=== PATIENT | female | born 1955 | race Caucasian/White ===

== ENCOUNTER 2023-03-24 21:03 | Inpatient (IN) | payer BC, MEDICARE, OTHER ==
[2023-03-24] MEDS ORDERED: Ipratropium/Albuterol 3 ML NEB ONE (21:16)
[2023-03-24 21:58] LABS: #Basophils 0.1 thou/uL (0.0-0.2); #Eosinphils 0.2 thou/uL (0.0-0.7); #Monocytes 0.7 thou/uL (0.11-0.59); #Neutrophils 10.4 thou/uL (1.40-6.50); %Basophils 0.5 % (0.0-1.0); %Eosinophils 1.6 % (0.0-10.0); %Lymphocytes 11.1 % (21.0-51.0); %Neutrophils 80.6 % (42.0-75.0); Hematocrit 35.6 % (36.0-47.0); Mean Corpuscular HGB CONC 28.1 g/dL (32.0-36.0); Mean Corpuscular Hemoglobin 29.9 pg (27.0-31.0); Mean Corpuscular Volume 106.6 fl (78.0-98.0); Mean Platelet Volume 8.8 fL (7.4-10.4); Platelet Count 334 10x3/uL (130-400); RBC Distribution Width 15.9 % (11.5-14.5); Red Blood Cell (RBC) Count 3.34 mill/uL (4.20-5.40); White Blood Cell (WBC) Count 12.9 10x3/uL (4.8-10.8)
[2023-03-24 22:05] LABS: Actual Bicarbonate (HCO3a) 41.2 mEq/L (22-28); Analyzer IN Cardio ER; Base Excess (BEa) 10.1 mEq/L (-2.0 to +3.0); Calcium, Ionized (arterial) 1.13 mmol/L (1.12-1.30); Carboxyhemoglobin (COHb) 1.2 gm% (0.0-3.0); Hematocrit-ABG 33 % (36.0-47.0); Hemoglobin (Hb) 11.1 g/dL (12.0-16.0); Potassium - ABG Lab 3.61 mmol/L (3.70-5.30); pH, Arterial 7.214 (7.35-7.45)
[2023-03-24 22:08] LABS: Manual Diff?? NO
[2023-03-24 22:10] LABS: CO2 Tension 104.3 mmHg (35.0-45.0)
[2023-03-24 22:11] LABS: ALV-art Gradient 163.385 mmHg (0-20); Puncture Site LBA
[2023-03-24 22:20] LABS: ALT (SGPT) 14 U/L (8-55); AST (SGOT) 19 U/L (5-34); Albumin 3.4 g/dL (3.4-4.8); Alkaline Phosphatase 91 U/L (40-110); BUN (Urea Nitrogen) 14 mg/dL (9.8-20.1); Bilirubin, Total 0.3 mg/dL (0.2-1.2); Calc. Creatinine Clearance 0 mL/min (70-130); Estimated GFR 62; Globulin 3.5 g/dL (2.4-3.5); Glucose 123 mg/dL (80-115); Protein, Total 6.9 g/dL (5.8-8.1)
[2023-03-24 22:29] LABS: Anion Gap 20 mmol/L (10-20); Carbon Dioxide 35 mmol/L (23-31); Chloride 94 mmol/L (98-107); Potassium 3.9 mmol/L (3.5-5.1); Sodium 145 mmol/L (136-145)
[2023-03-24 22:51] LABS: Macrocytosis MODERATE=16-30 cells (100X) (0-5/hpf); Ovalocytes SLIGHT = 2-5 cells (100X) (0-1/hpf)
[2023-03-24 22:52] LABS: Basophilic Stippling SLIGHT = 1-2 cells (100X) (None Seen)
[2023-03-24 22:53] LABS: Polychromasia SLIGHT = 2-3 cells (100X) (0-2/hpf)
[2023-03-24 22:56] LABS: Platelet Adequacy Comment Platelets Normal
[2023-03-24] MEDS ORDERED: methylPREDNISolone Sod Succ/PF 125 MG/2 ML VIAL ONE (23:13)
[2023-03-25] MEDS ORDERED: Ondansetron ODT 4 MG TAB PO PRN (00:17)
[2023-03-25] MEDS ORDERED: Calcium Carbonate 500 MG ChewTAB PO PRN (00:17)
[2023-03-25] MEDS ORDERED: Acetaminophen 325 MG TAB PO PRN (00:17)
[2023-03-25] MEDS ORDERED: Senokot S 8.6-50 MG TAB PO PRN (00:17)
[2023-03-25] MEDS: Ipratropium/Albuterol 3 ML NEB NEB SCH ×4 (01:19→18:09)
[2023-03-25 01:44] LABS: Hemoglobin A1c 4.8 % (4.0-6.0)
[2023-03-25] MEDS ORDERED: Albuterol 200 PUFF (6.7GM INHALER) INH PRN (03:59)
[2023-03-25 04:12] LABS: Base Excess 15.8 mEq/L (-2.0 to +3.0); Calcium, Ionized (venous) 1.06 mmol/L (1.16-1.32); Chloride (VBG) 95 mmol/L (98-106); Hematocrit-VBG 33 % (36.0-47.0); Hemoglobin (Hb) 11.1 g/dL (11.7-16.1); Potassium (VBG) 3.83 mmol/L (3.70-5.30); Sodium 141.4 mmol/L (133-146); pH (venous) 7.315 (7.32-7.43)
[2023-03-25 04:19] LABS: #Monocytes 0.1 thou/uL (0.11-0.59); %Basophils 0.3 % (0.0-1.0); %Eosinophils 0.3 % (0.0-10.0); %Lymphocytes 3.7 % (21.0-51.0); %Monocytes 1.2 % (0.0-10.0); %Neutrophils 93.5 % (42.0-75.0); Hematocrit 33.3 % (36.0-47.0); Hemoglobin 9.7 g/dL (12.0-16.0); Mean Corpuscular HGB CONC 29.1 g/dL (32.0-36.0); Mean Corpuscular Hemoglobin 30.1 pg (27.0-31.0); Mean Platelet Volume 9.5 fL (7.4-10.4); Platelet Count 318 10x3/uL (130-400); RBC Distribution Width 15.9 % (11.5-14.5); Red Blood Cell (RBC) Count 3.22 mill/uL (4.20-5.40); White Blood Cell (WBC) Count 10.7 10x3/uL (4.8-10.8)
[2023-03-25 04:27] LABS: Mean Corpuscular Volume 103.4 fl (78.0-98.0)
[2023-03-25 04:28] LABS: Phosphorus 3.4 mg/dL (2.3-4.7)
[2023-03-25 04:31] LABS: BUN (Urea Nitrogen) 13 mg/dL (9.8-20.1); Calc. Creatinine Clearance 106 mL/min (70-130); Estimated GFR 62; Glucose 135 mg/dL (80-115)
[2023-03-25 04:40] LABS: Anion Gap 20 mmol/L (10-20); Carbon Dioxide 30 mmol/L (23-31); Chloride 96 mmol/L (98-107); Potassium 3.8 mmol/L (3.5-5.1); Sodium 142 mmol/L (136-145)
[2023-03-25] MEDS: methylPREDNISolone Sod Succ 40 MG VIAL IVP SCH ×3 (06:12→18:31)
[2023-03-25] MEDS: Levothyroxine Sodium 100 MCG TAB PO SCH (06:12)
[2023-03-25] MEDS: Budesonide 0.25 MG/2 ML NEB NEB SCH ×2 (07:15→18:12)
[2023-03-25] MEDS: Ipratropium Bromide 2.5 ml Neb NEB SCH ×3 (07:18→18:13)
[2023-03-25 08:39] LABS: Base Excess 15.2 mEq/L (-2.0 to +3.0); Calcium, Ionized (venous) 1.15 mmol/L (1.16-1.32); Chloride (VBG) 92 mmol/L (98-106); Hematocrit-VBG 33 % (36.0-47.0); Hemoglobin (Hb) 11.2 g/dL (11.7-16.1); Potassium (VBG) 3.86 mmol/L (3.70-5.30); Sodium 141.5 mmol/L (133-146); pH (venous) 7.258 (7.32-7.43)
[2023-03-25 08:47] LABS: Actual Bicarbonate (HCO3v) 46.2 mEq/L (22-28)
[2023-03-25 08:53] LABS: Actual Bicarbonate (HCO3a) 39.8 mEq/L (22-28); Base Excess (BEa) 12.5 mEq/L (-2.0 to +3.0); Calcium, Ionized (arterial) 1.11 mmol/L (1.12-1.30); Carboxyhemoglobin (COHb) 1.1 gm% (0.0-3.0); Hematocrit-ABG 31 % (36.0-47.0); Hemoglobin (Hb) 10.7 g/dL (12.0-16.0); Potassium - ABG Lab 4.09 mmol/L (3.70-5.30); pH, Arterial 7.387 (7.35-7.45)
[2023-03-25] MEDS: Ezetimibe 10 MG TAB PO SCH (08:53)
[2023-03-25] MEDS: Multivit, Therapeutic 1 TAB PO SCH (08:53)
[2023-03-25] MEDS: Aspirin 81 mg Enteric Coated Tablet PO SCH (08:53)
[2023-03-25] MEDS: Lisinopril 20 MG TAB PO SCH (08:53)
[2023-03-25] MEDS: busPIRone HCl 10 MG TAB PO SCH ×2 (08:53→14:16)
[2023-03-25] MEDS: DULoxetine 60 MG CAP PO SCH (08:53)
[2023-03-25 08:55] LABS: CO2 Tension 67.7 mmHg (35.0-45.0); O2 Tension (PaO2), arterial 55.5 mmHg (> 80.0); Puncture Site LRA
[2023-03-25 08:57] LABS: ALV-art Gradient 145.075 mmHg (0-20)
[2023-03-25] MEDS ORDERED: Cyanocobalamin 1000 MCG/ML VIAL IM SCH (09:00)
[2023-03-25] MEDS ORDERED: methylPREDNISolone Sod Succ 40 MG VIAL IVP SCH (09:00)
[2023-03-25] MEDS ORDERED: cefTRIAXone\\ROCEPHIN 1 GM in Sodium Chloride 0.9% 100 ML IVPB SCH (09:00)
[2023-03-25] MEDS ORDERED: Famotidine 20 MG TAB PO SCH (09:00)
[2023-03-25] MEDS ORDERED: Doxycycline 100 MG CAP PO SCH (09:00)
[2023-03-25] MEDS ORDERED: Iopamidol-370 76% 500 ML MDV (1 ML CHARGE) ONE (10:54)
[2023-03-25 12:43] LABS: Bacteria/HPF None Seen HPF (None Seen); Bilirubin Negative (Negative); Blood, Urine Negative (Negative); CAUTI Indications for Culture Alt mental st,lethar; Clarity Clear (Clear); Glucose, Urine (Dipstick) Normal (Negative); Ketone, Urine Negative (Negative); Leukocyte Negative Leu/uL (Negative); Nitrite Negative (Negative); Protein, Urine (Dipstick) 100 mg/dL (Neg-Trace); RBC/HPF 0-3 HPF (0-3); Squamous Epithelial 0-3 HPF (0-3); Urobilinogen Normal mg/dL (Less than 2); WBC/HPF 0-3 HPF (0-3)
[2023-03-25 12:44] LABS: Specific Gravity, Urine 1.048 (1.002-1.036)
[2023-03-25 12:45] LABS: Urine Culture Reflex No No
[2023-03-25] MEDS ORDERED: Artificial Tear Sol 15 ML BOT EA EYE PRN (13:21)
[2023-03-25] MEDS ORDERED: Naloxone HCl 0.4 mg/ml Vial IV PRN (13:21)
[2023-03-25] MEDS ORDERED: Bisacodyl 10 MG SUPP PR PRN (13:21)
[2023-03-25] MEDS ORDERED: Moisturizing Cream (Eucerin) 113 GM JAR TOP PRN (13:21)
[2023-03-25] MEDS ORDERED: Pantoprazole 40 MG VIAL IVP SCH (13:30)
[2023-03-25] MEDS ORDERED: Ondansetron PF 4 MG/2 ML Vial IVP PRN (13:54)
[2023-03-25] MEDS ORDERED: Acetaminophen 650 MG Suppository PR PRN (13:54)
[2023-03-25 15:11] LABS: SARS-CoV-2 NAA Rapid Test Not Detected (NotDetected)
[2023-03-25] MEDS ORDERED: Sterile Water 10 ML ONE (20:30)
[2023-03-25] MEDS: acetaZOLAMIDE Sodium 500 mg Vial IVP SCH (20:50)
[2023-03-25] MEDS: Estradiol 0.01% Vaginal Cream 42.5 gm Tube VAG SCH (20:52)
[2023-03-25] MEDS: SODIUM CHLORIDE 0.9% IVPB SCH (20:52)
[2023-03-25] MEDS: AMINOPHYLLINE IVPB SCH (20:52)
[2023-03-25] MEDS ORDERED: Amiodarone 200 MG TAB PO SCH (21:00)
[2023-03-25] MEDS ORDERED: Doxycycline 100 MG in Sodium Chloride 0.9% 100 ML IVPB SCH (21:00)
[2023-03-25] MEDS ORDERED: Estrogens, Conjugated 30 GM TUBE VAG SCH (21:00)
[2023-03-26] MEDS: Ipratropium/Albuterol 3 ML NEB NEB SCH ×2 (01:03→06:38)
[2023-03-26] MEDS: methylPREDNISolone Sod Succ 40 MG VIAL IVP SCH ×3 (02:24→08:12)
[2023-03-26] MEDS ORDERED: Adenosine 6 MG/2 ML VIAL ONE ×2 (02:38→02:46)
[2023-03-26 02:59] LABS: Base Excess (BEa) 14.8 mEq/L (-2.0 to +3.0); CO2 Tension 59.8 mmHg (35.0-45.0); Calcium, Ionized (arterial) 1.11 mmol/L (1.12-1.30); Carboxyhemoglobin (COHb) 0.1 gm% (0.0-3.0); Hematocrit-ABG 32 % (36.0-47.0); Hemoglobin (Hb) 10.9 g/dL (12.0-16.0); O2 Tension (PaO2), arterial 67.4 mmHg (> 80.0); Potassium - ABG Lab 4.05 mmol/L (3.70-5.30); pH, Arterial 7.454 (7.35-7.45)
[2023-03-26] MEDS ORDERED: dilTIAZem 125 MG in Sodium Chloride 0.9% 100 ML IVPB SCH ×2 (03:00→12:30)
[2023-03-26] MEDS ORDERED: dilTIAZem 25 MG/5 ML VIAL SLOW IVP SCH ×2 (03:15→12:30)
[2023-03-26] MEDS ORDERED: Adenosine 6 MG/2 ML VIAL IVP SCH ×3 (03:15)
[2023-03-26 06:17] LABS: Magnesium 2.2 mg/dL (1.6-2.6); Phosphorus 2.3 mg/dL (2.3-4.7)
[2023-03-26] MEDS: Levothyroxine Sodium 100 MCG TAB PO SCH (06:19)
[2023-03-26 06:26] LABS: Free T4 (Free Thyroxine) 1.04 ng/dL (0.70-1.48); Thyroid Stimulating Hormone 4.1082 uIU/mL (0.35-4.94)
[2023-03-26] MEDS: Ipratropium Bromide 2.5 ml Neb NEB SCH ×3 (06:36→18:32)
[2023-03-26] MEDS: Budesonide 0.25 MG/2 ML NEB NEB SCH ×2 (06:37→18:32)
[2023-03-26] MEDS: SODIUM CHLORIDE 0.9% IVPB SCH (07:56)
[2023-03-26] MEDS: AMINOPHYLLINE IVPB SCH (07:56)
[2023-03-26] MEDS: Lisinopril 20 MG TAB PO SCH (08:12)
[2023-03-26] MEDS: Pantoprazole 40 MG VIAL IVP SCH (08:12)
[2023-03-26] MEDS ORDERED: Pantoprazole 40 MG VIAL IVP SCH (09:00)
[2023-03-26 10:55] LABS: Magnesium 2.2 mg/dL (1.6-2.6)
[2023-03-26] MEDS: acetaZOLAMIDE Sodium 500 mg Vial IVP SCH ×2 (11:00→20:58)
[2023-03-26] MEDS: Aspirin 300 MG Suppository PR SCH (18:37)
[2023-03-26] MEDS: Ezetimibe 10 MG TAB PO SCH (18:38)
[2023-03-26] MEDS: Lidocaine 4% Patch TD SCH (18:38)
[2023-03-26] MEDS: Multivit, Therapeutic 1 TAB PO SCH (18:38)
[2023-03-26] MEDS: Aspirin 81 mg Enteric Coated Tablet PO SCH (18:38)
[2023-03-26] MEDS: fentaNYL 75 mcg/hour Patch TD SCH (18:55)
[2023-03-26 20:19] LABS: #Monocytes 0.5 thou/uL (0.11-0.59); #Neutrophils 9.9 thou/uL (1.40-6.50); %Lymphocytes 8.4 % (21.0-51.0); %Monocytes 4.1 % (0.0-10.0); Hematocrit 32.4 % (36.0-47.0); Hemoglobin 9.7 g/dL (12.0-16.0); Mean Corpuscular HGB CONC 29.9 g/dL (32.0-36.0); Mean Corpuscular Hemoglobin 29.8 pg (27.0-31.0); Mean Corpuscular Volume 99.4 fl (78.0-98.0); Mean Platelet Volume 9.4 fL (7.4-10.4); Platelet Count 376 10x3/uL (130-400); RBC Distribution Width 16.8 % (11.5-14.5); Red Blood Cell (RBC) Count 3.26 mill/uL (4.20-5.40); White Blood Cell (WBC) Count 11.4 10x3/uL (4.8-10.8)
[2023-03-26] MEDS: Transdermal Patch Removal TOP SCH (20:35)
[2023-03-26 20:39] LABS: BUN (Urea Nitrogen) 21 mg/dL (9.8-20.1); Calc. Creatinine Clearance 113 mL/min (70-130); Calcium 8.9 mg/dL (7.8-10.44); Estimated GFR 67; Glucose 101 mg/dL (80-115)
[2023-03-26 20:47] LABS: Anion Gap 17 mmol/L (10-20); Carbon Dioxide 36 mmol/L (23-31); Chloride 93 mmol/L (98-107); Potassium 3.5 mmol/L (3.5-5.1); Sodium 142 mmol/L (136-145)
[2023-03-26] MEDS ORDERED: Sterile Water 10 ML ONE (20:54)
[2023-03-27 03:45] LABS: #Monocytes 0.7 thou/uL (0.11-0.59); #Neutrophils 8.3 thou/uL (1.40-6.50); %Basophils 0.1 % (0.0-1.0); %Eosinophils 0.1 % (0.0-10.0); %Monocytes 6.7 % (0.0-10.0); %Neutrophils 77.6 % (42.0-75.0); Hematocrit 32.5 % (36.0-47.0); Hemoglobin 9.7 g/dL (12.0-16.0); Mean Corpuscular HGB CONC 29.8 g/dL (32.0-36.0); Mean Corpuscular Volume 100.6 fl (78.0-98.0); Mean Platelet Volume 9.4 fL (7.4-10.4); Platelet Count 389 10x3/uL (130-400); RBC Distribution Width 16.8 % (11.5-14.5); Red Blood Cell (RBC) Count 3.23 mill/uL (4.20-5.40); White Blood Cell (WBC) Count 10.7 10x3/uL (4.8-10.8)
[2023-03-27 04:06] LABS: Phosphorus 1.9 mg/dL (2.3-4.7)
[2023-03-27 04:09] LABS: BUN (Urea Nitrogen) 21 mg/dL (9.8-20.1); Calc. Creatinine Clearance 104 mL/min (70-130); Calcium 9.1 mg/dL (7.8-10.44); Estimated GFR 61; Glucose 92 mg/dL (80-115); Magnesium 2.3 mg/dL (1.6-2.6)
[2023-03-27 04:18] LABS: Anion Gap 14 mmol/L (10-20); Carbon Dioxide 36 mmol/L (23-31); Chloride 94 mmol/L (98-107); Potassium 3.6 mmol/L (3.5-5.1); Sodium 140 mmol/L (136-145)
[2023-03-27] MEDS: Budesonide 0.25 MG/2 ML NEB NEB SCH ×2 (06:14→18:51)
[2023-03-27] MEDS: Ipratropium Bromide 2.5 ml Neb NEB SCH ×3 (06:14→18:51)
[2023-03-27] MEDS: Levothyroxine Sodium 100 MCG TAB PO SCH (06:44)
[2023-03-27] MEDS: Pantoprazole 40 MG VIAL IVP SCH (09:12)
[2023-03-27] MEDS: acetaZOLAMIDE Sodium 500 mg Vial IVP SCH ×2 (09:12→20:32)
[2023-03-27] MEDS: Aspirin 300 MG Suppository PR SCH (09:13)
[2023-03-27] MEDS: Aspirin 81 mg Enteric Coated Tablet PO SCH (09:13)
[2023-03-27] MEDS: Multivit, Therapeutic 1 TAB PO SCH (09:13)
[2023-03-27] MEDS: Lisinopril 20 MG TAB PO SCH (09:13)
[2023-03-27] MEDS: Ezetimibe 10 MG TAB PO SCH (09:13)
[2023-03-27] MEDS: Lidocaine 4% Patch TD SCH (09:14)
[2023-03-27] MEDS: DULoxetine 60 MG CAP PO SCH ×2 (09:18→20:31)
[2023-03-27] MEDS ORDERED: Electrolyte Replacement Protocol 1 EACH FS SCH (14:00)
[2023-03-27] MEDS: PHOS-NAK 1 PKT PACK PO SCH ×2 (14:17→20:32)
[2023-03-27] MEDS: Digoxin 0.5 MG/2 ML AMP SLOW IVP SCH ×2 (16:37→23:23)
[2023-03-27] MEDS: Transdermal Patch Removal TOP SCH (20:24)
[2023-03-27] MEDS ORDERED: Sterile Water 10 ML ONE (20:25)
[2023-03-28 04:05] LABS: #Eosinphils 0.3 thou/uL (0.0-0.7); #Monocytes 0.6 thou/uL (0.11-0.59); #Neutrophils 6.3 thou/uL (1.40-6.50); %Basophils 0.1 % (0.0-1.0); %Eosinophils 3.2 % (0.0-10.0); %Lymphocytes 23.3 % (21.0-51.0); %Monocytes 6.5 % (0.0-10.0); %Neutrophils 66.6 % (42.0-75.0); Hematocrit 33.1 % (36.0-47.0); Hemoglobin 9.8 g/dL (12.0-16.0); Mean Corpuscular HGB CONC 29.6 g/dL (32.0-36.0); Mean Corpuscular Hemoglobin 29.8 pg (27.0-31.0); Mean Corpuscular Volume 100.6 fl (78.0-98.0); Mean Platelet Volume 9.3 fL (7.4-10.4); Platelet Count 378 10x3/uL (130-400); RBC Distribution Width 16.3 % (11.5-14.5); Red Blood Cell (RBC) Count 3.29 mill/uL (4.20-5.40); White Blood Cell (WBC) Count 9.4 10x3/uL (4.8-10.8)
[2023-03-28 04:26] LABS: Anion Gap 10 mmol/L (10-20); BUN (Urea Nitrogen) 16 mg/dL (9.8-20.1); Calc. Creatinine Clearance 117 mL/min (70-130); Calcium 8.5 mg/dL (7.8-10.44); Carbon Dioxide 37 mmol/L (23-31); Chloride 98 mmol/L (98-107); Estimated GFR 70; Glucose 90 mg/dL (80-115); Potassium 3.3 mmol/L (3.5-5.1); Sodium 142 mmol/L (136-145)
[2023-03-28] MEDS: Digoxin 0.5 MG/2 ML AMP SLOW IVP SCH ×2 (05:26→09:07)
[2023-03-28] MEDS: Levothyroxine Sodium 100 MCG TAB PO SCH (05:27)
[2023-03-28] MEDS: Ipratropium Bromide 2.5 ml Neb NEB SCH ×3 (07:11→18:51)
[2023-03-28] MEDS: Budesonide 0.25 MG/2 ML NEB NEB SCH ×2 (07:13→18:51)
[2023-03-28] MEDS ORDERED: Potassium Chloride 20 MEQ TAB PO SCH (08:00)
[2023-03-28] MEDS ORDERED: Sterile Water 10 ML ONE (09:00)
[2023-03-28] MEDS: acetaZOLAMIDE Sodium 500 mg Vial IVP SCH ×2 (09:05→20:29)
[2023-03-28] MEDS: Lisinopril 20 MG TAB PO SCH (09:06)
[2023-03-28] MEDS: Multivit, Therapeutic 1 TAB PO SCH (09:06)
[2023-03-28] MEDS: Pantoprazole 40 MG VIAL IVP SCH (09:06)
[2023-03-28] MEDS: Aspirin 81 mg Enteric Coated Tablet PO SCH (09:06)
[2023-03-28] MEDS: DULoxetine 60 MG CAP PO SCH ×2 (09:06→20:29)
[2023-03-28] MEDS: Ezetimibe 10 MG TAB PO SCH (09:06)
[2023-03-28] MEDS: Aspirin 300 MG Suppository PR SCH (09:07)
[2023-03-28] MEDS: Lidocaine 4% Patch TD SCH (09:07)
[2023-03-28 12:37] LABS: Actual Bicarbonate (HCO3v) 45.6 mEq/L (22-28)
[2023-03-28] MEDS: Transdermal Patch Removal TOP SCH (21:42)
[2023-03-29 02:46] LABS: #Eosinphils 0.4 thou/uL (0.0-0.7); #Monocytes 0.5 thou/uL (0.11-0.59); #Neutrophils 7.1 thou/uL (1.40-6.50); %Basophils 0.2 % (0.0-1.0); %Eosinophils 4.3 % (0.0-10.0); %Lymphocytes 20.7 % (21.0-51.0); %Monocytes 5.2 % (0.0-10.0); %Neutrophils 69.1 % (42.0-75.0); Hematocrit 34.4 % (36.0-47.0); Hemoglobin 10.3 g/dL (12.0-16.0); Mean Corpuscular HGB CONC 29.9 g/dL (32.0-36.0); Mean Corpuscular Hemoglobin 29.6 pg (27.0-31.0); Mean Corpuscular Volume 98.9 fl (78.0-98.0); Mean Platelet Volume 9.5 fL (7.4-10.4); Platelet Count 388 10x3/uL (130-400); RBC Distribution Width 15.9 % (11.5-14.5); Red Blood Cell (RBC) Count 3.48 mill/uL (4.20-5.40); White Blood Cell (WBC) Count 10.3 10x3/uL (4.8-10.8)
[2023-03-29 03:39] LABS: Anion Gap 10 mmol/L (10-20); BUN (Urea Nitrogen) 12 mg/dL (9.8-20.1); Calc. Creatinine Clearance 111 mL/min (70-130); Calcium 8.5 mg/dL (7.8-10.44); Carbon Dioxide 33 mmol/L (23-31); Chloride 101 mmol/L (98-107); Estimated GFR 66; Glucose 107 mg/dL (80-115); Potassium 3.2 mmol/L (3.5-5.1); Sodium 141 mmol/L (136-145)
[2023-03-29] MEDS ORDERED: Potassium Chloride 20 MEQ TAB PO SCH ×2 (06:00→21:00)
[2023-03-29] MEDS: Levothyroxine Sodium 100 MCG TAB PO SCH (06:19)
[2023-03-29] MEDS: Ipratropium/Albuterol 3 ML NEB NEB PRN (07:26)
[2023-03-29] MEDS: Budesonide 0.25 MG/2 ML NEB NEB SCH ×2 (07:29→22:11)
[2023-03-29] MEDS: Ipratropium Bromide 2.5 ml Neb NEB SCH ×3 (07:44→22:11)
[2023-03-29] MEDS: Pantoprazole 40 MG VIAL IVP SCH (09:31)
[2023-03-29] MEDS: Lisinopril 20 MG TAB PO SCH (09:31)
[2023-03-29] MEDS: busPIRone HCl 10 MG TAB PO SCH ×3 (09:32→21:10)
[2023-03-29] MEDS: Multivit, Therapeutic 1 TAB PO SCH (09:32)
[2023-03-29] MEDS: Aspirin 81 mg Enteric Coated Tablet PO SCH (09:33)
[2023-03-29] MEDS: Ezetimibe 10 MG TAB PO SCH (09:33)
[2023-03-29] MEDS: DULoxetine 60 MG CAP PO SCH ×2 (09:33→21:10)
[2023-03-29] MEDS: Digoxin 0.5 MG/2 ML AMP SLOW IVP SCH (09:33)
[2023-03-29] MEDS: acetaZOLAMIDE Sodium 500 mg Vial IVP SCH ×2 (09:34→21:10)
[2023-03-29] MEDS: Aspirin 300 MG Suppository PR SCH (09:37)
[2023-03-29] MEDS: Lidocaine 4% Patch TD SCH (09:46)
[2023-03-29] MEDS: fentaNYL 75 mcg/hour Patch TD SCH (17:11)
[2023-03-29] MEDS: OLANZapine 5 MG TAB PO SCH (21:10)
[2023-03-29] MEDS: traZODone HCl 50 MG TAB PO SCH (21:10)
[2023-03-29] MEDS: Transdermal Patch Removal TOP SCH (21:17)
[2023-03-29] MEDS: Estradiol 0.01% Vaginal Cream 42.5 gm Tube VAG SCH (21:18)
[2023-03-30 03:59] LABS: #Eosinphils 0.5 thou/uL (0.0-0.7); #Monocytes 0.6 thou/uL (0.11-0.59); #Neutrophils 8.4 thou/uL (1.40-6.50); %Basophils 0.2 % (0.0-1.0); %Eosinophils 4.5 % (0.0-10.0); %Lymphocytes 20.3 % (21.0-51.0); %Neutrophils 69.7 % (42.0-75.0); Hematocrit 37.5 % (36.0-47.0); Hemoglobin 11.3 g/dL (12.0-16.0); Mean Corpuscular HGB CONC 30.1 g/dL (32.0-36.0); Mean Corpuscular Hemoglobin 29.8 pg (27.0-31.0); Mean Corpuscular Volume 98.9 fl (78.0-98.0); Mean Platelet Volume 9.4 fL (7.4-10.4); Platelet Count 395 10x3/uL (130-400); Red Blood Cell (RBC) Count 3.79 mill/uL (4.20-5.40); White Blood Cell (WBC) Count 12.1 10x3/uL (4.8-10.8)
[2023-03-30 04:23] LABS: Anion Gap 9 mmol/L (10-20); BUN (Urea Nitrogen) 10 mg/dL (9.8-20.1); Calc. Creatinine Clearance 105 mL/min (70-130); Calcium 8.9 mg/dL (7.8-10.44); Carbon Dioxide 32 mmol/L (23-31); Chloride 104 mmol/L (98-107); Estimated GFR 62; Glucose 86 mg/dL (80-115); Magnesium 2.5 mg/dL (1.6-2.6); Potassium 4.2 mmol/L (3.5-5.1); Sodium 141 mmol/L (136-145)
[2023-03-30] MEDS: Levothyroxine Sodium 100 MCG TAB PO SCH (06:18)
[2023-03-30] MEDS: Budesonide 0.25 MG/2 ML NEB NEB SCH ×2 (07:24→18:40)
[2023-03-30] MEDS: Ipratropium/Albuterol 3 ML NEB NEB PRN (07:25)
[2023-03-30] MEDS: Ipratropium Bromide 2.5 ml Neb NEB SCH ×3 (07:32→18:40)
[2023-03-30] MEDS: Digoxin 0.5 MG/2 ML AMP SLOW IVP SCH (09:25)
[2023-03-30] MEDS: Pantoprazole 40 MG VIAL IVP SCH (09:25)
[2023-03-30] MEDS: DULoxetine 60 MG CAP PO SCH ×2 (09:25→21:16)
[2023-03-30] MEDS: acetaZOLAMIDE Sodium 500 mg Vial IVP SCH (09:25)
[2023-03-30] MEDS: Lisinopril 20 MG TAB PO SCH (09:26)
[2023-03-30] MEDS: Ezetimibe 10 MG TAB PO SCH (09:26)
[2023-03-30] MEDS: Multivit, Therapeutic 1 TAB PO SCH (09:26)
[2023-03-30] MEDS: busPIRone HCl 10 MG TAB PO SCH ×3 (09:26→21:16)
[2023-03-30] MEDS: Lidocaine 4% Patch TD SCH (09:26)
[2023-03-30] MEDS: Aspirin 81 mg Enteric Coated Tablet PO SCH (09:26)
[2023-03-30] MEDS: Aspirin 300 MG Suppository PR SCH (09:41)
[2023-03-30] MEDS: OLANZapine 5 MG TAB PO SCH (21:16)
[2023-03-30] MEDS: traZODone HCl 50 MG TAB PO SCH (21:16)
[2023-03-30] MEDS: Estradiol 0.01% Vaginal Cream 42.5 gm Tube VAG SCH (21:25)
[2023-03-30] MEDS: Transdermal Patch Removal TOP SCH (22:10)
[2023-03-31 03:59] LABS: #Eosinphils 0.7 thou/uL (0.0-0.7); #Monocytes 0.6 thou/uL (0.11-0.59); #Neutrophils 10.6 thou/uL (1.40-6.50); %Basophils 0.2 % (0.0-1.0); %Eosinophils 5.2 % (0.0-10.0); %Lymphocytes 15.4 % (21.0-51.0); %Monocytes 4.2 % (0.0-10.0); %Neutrophils 74.6 % (42.0-75.0); Hemoglobin 11.5 g/dL (12.0-16.0); Mean Corpuscular HGB CONC 29.5 g/dL (32.0-36.0); Mean Corpuscular Hemoglobin 29.8 pg (27.0-31.0); Mean Platelet Volume 9.4 fL (7.4-10.4); Platelet Count 449 10x3/uL (130-400); RBC Distribution Width 15.8 % (11.5-14.5); Red Blood Cell (RBC) Count 3.86 mill/uL (4.20-5.40); White Blood Cell (WBC) Count 14.2 10x3/uL (4.8-10.8)
[2023-03-31 04:20] LABS: Anion Gap 11 mmol/L (10-20); BUN (Urea Nitrogen) 9 mg/dL (9.8-20.1); Calc. Creatinine Clearance 109 mL/min (70-130); Calcium 8.8 mg/dL (7.8-10.44); Carbon Dioxide 32 mmol/L (23-31); Chloride 102 mmol/L (98-107); Estimated GFR 66; Glucose 105 mg/dL (80-115); Potassium 4.2 mmol/L (3.5-5.1); Sodium 141 mmol/L (136-145)
[2023-03-31 06:13] VITALS: BMI 46.2
[2023-03-31] MEDS: Levothyroxine Sodium 100 MCG TAB PO SCH (06:19)
[2023-03-31] MEDS: Ipratropium Bromide 2.5 ml Neb NEB SCH ×3 (07:47→18:50)
[2023-03-31] MEDS: Budesonide 0.25 MG/2 ML NEB NEB SCH ×2 (07:49→18:48)
[2023-03-31] MEDS: Aspirin 81 mg Enteric Coated Tablet PO SCH (09:16)
[2023-03-31] MEDS: Multivit, Therapeutic 1 TAB PO SCH (09:16)
[2023-03-31] MEDS: Lisinopril 20 MG TAB PO SCH (09:16)
[2023-03-31] MEDS: Lidocaine 4% Patch TD SCH (09:16)
[2023-03-31] MEDS: busPIRone HCl 10 MG TAB PO SCH ×3 (09:16→20:16)
[2023-03-31] MEDS: Ezetimibe 10 MG TAB PO SCH (09:17)
[2023-03-31] MEDS: AcetaZOLAMIDE 250 MG TAB PO SCH (09:17)
[2023-03-31] MEDS: Aspirin 300 MG Suppository PR SCH (09:17)
[2023-03-31] MEDS: DULoxetine 60 MG CAP PO SCH ×2 (09:18→20:16)
[2023-03-31] MEDS: Modafinil 100 MG TAB PO SCH (10:00)
[2023-03-31] MEDS: traZODone HCl 50 MG TAB PO SCH (20:16)
[2023-03-31] MEDS: OLANZapine 5 MG TAB PO SCH (20:17)
[2023-03-31] MEDS: Transdermal Patch Removal TOP SCH (20:17)
[2023-03-31] MEDS: Estradiol 0.01% Vaginal Cream 42.5 gm Tube VAG SCH (20:17)
[2023-04-01 03:32] LABS: #Eosinphils 0.7 thou/uL (0.0-0.7); #Monocytes 0.6 thou/uL (0.11-0.59); #Neutrophils 10.3 thou/uL (1.40-6.50); %Basophils 0.2 % (0.0-1.0); %Eosinophils 4.8 % (0.0-10.0); %Monocytes 4.5 % (0.0-10.0); %Neutrophils 74.1 % (42.0-75.0); Hematocrit 36.1 % (36.0-47.0); Hemoglobin 10.7 g/dL (12.0-16.0); Mean Corpuscular HGB CONC 29.6 g/dL (32.0-36.0); Mean Corpuscular Volume 101.1 fl (78.0-98.0); Mean Platelet Volume 9.5 fL (7.4-10.4); Platelet Count 435 10x3/uL (130-400); RBC Distribution Width 15.4 % (11.5-14.5); Red Blood Cell (RBC) Count 3.57 mill/uL (4.20-5.40); White Blood Cell (WBC) Count 13.9 10x3/uL (4.8-10.8)
[2023-04-01 03:53] LABS: Anion Gap 12 mmol/L (10-20); BUN (Urea Nitrogen) 7 mg/dL (9.8-20.1); Calc. Creatinine Clearance 111 mL/min (70-130); Calcium 8.9 mg/dL (7.8-10.44); Carbon Dioxide 31 mmol/L (23-31); Chloride 103 mmol/L (98-107); Estimated GFR 67; Glucose 97 mg/dL (80-115); Potassium 3.8 mmol/L (3.5-5.1); Sodium 142 mmol/L (136-145)
[2023-04-01 05:55] VITALS: TEMP 97.9
[2023-04-01] MEDS: Levothyroxine Sodium 100 MCG TAB PO SCH (06:33)
[2023-04-01] MEDS: Ipratropium Bromide 2.5 ml Neb NEB SCH ×2 (06:52→13:48)
[2023-04-01] MEDS: Budesonide 0.25 MG/2 ML NEB NEB SCH (06:53)
[2023-04-01] MEDS: busPIRone HCl 10 MG TAB PO SCH (10:06)
[2023-04-01] MEDS: Modafinil 100 MG TAB PO SCH (10:06)
[2023-04-01] MEDS: Aspirin 81 mg Enteric Coated Tablet PO SCH (10:07)
[2023-04-01] MEDS: Lisinopril 20 MG TAB PO SCH (10:07)
[2023-04-01] MEDS: DULoxetine 60 MG CAP PO SCH (10:07)
[2023-04-01] MEDS: Ezetimibe 10 MG TAB PO SCH (10:07)
[2023-04-01] MEDS: Multivit, Therapeutic 1 TAB PO SCH (10:07)
[2023-04-01] MEDS: Aspirin 300 MG Suppository PR SCH (10:08)
[2023-04-01] MEDS: Lidocaine 4% Patch TD SCH (10:08)
[2023-04-01] MEDS: AcetaZOLAMIDE 250 MG TAB PO SCH (10:25)
[2023-04-01 14:27] VITALS: BP 126/74
== END 2023-04-01 15:43 | disposition home health service (06) | DRG 189 ==
LOC: ERS 21:03 → EDBD 03-25 00:04 → IMCU/EMU 03-25 00:04
PROVIDERS: ADMIT Student in an Organized Health Care Education/Training Program; ATTEND Emergency Medicine
PROC: 4A133R1 Monitoring of Arterial Saturation, Peripheral, Percutaneous Approach (ICD-10-PCS; principal; 2023-03-25)
DX: J96.21 Acute and chronic respiratory failure with hypoxia (principal); G93.41 Metabolic encephalopathy; J44.1 Chronic obstructive pulmonary disease with (acute) exacerbation; E87.4 Mixed disorder of acid-base balance; Z68.42 Body mass index [BMI] 45.0-49.9, adult; I47.1 Supraventricular tachycardia; E66.2 Morbid (severe) obesity with alveolar hypoventilation; J96.22 Acute and chronic respiratory failure with hypercapnia; D75.89 Other specified diseases of blood and blood-forming organs; I25.10 Atherosclerotic heart disease of native coronary artery without angina pectoris; E03.9 Hypothyroidism, unspecified; I10 Essential (primary) hypertension; F41.9 Anxiety disorder, unspecified; F32.A Depression, unspecified; K21.9 Gastro-esophageal reflux disease without esophagitis; C88.0 Waldenstrom macroglobulinemia; M06.9 Rheumatoid arthritis, unspecified; F20.9 Schizophrenia, unspecified; Z20.822 Contact with and (suspected) exposure to COVID-19; Z79.899 Other long term (current) drug therapy; Z87.891 Personal history of nicotine dependence; Z90.710 Acquired absence of both cervix and uterus; G89.29 Other chronic pain; Z98.84 Bariatric surgery status; R53.81 Other malaise
CPT/HCPCS: 36415; 36600; 71045; 71260; 80048; 80053; 81001; 82805; 83036; 83735; 83880; 84100; 84145; 84439; 84443; 84481; 84484; 85025; 93005; 93010; 94640; 94660; 96374; C9113; J0153; J0280; J0696; J1050; J1120; J1160; J1650; J2405; J2920; J2930; J3490; J7620; J7626; Q9967

== ENCOUNTER 2023-05-01 10:17 | Inpatient (IN) | payer MEDICARE, BC, OTHER ==
[2023-05-01 10:56] LABS: Hematocrit 41.2 % (36.0-47.0); Hemoglobin 11.7 g/dL (12.0-16.0); Mean Corpuscular HGB CONC 28.4 g/dL (32.0-36.0); Mean Corpuscular Hemoglobin 29.4 pg (27.0-31.0); Mean Corpuscular Volume 103.5 fl (78.0-98.0); Mean Platelet Volume 9.2 fL (7.4-10.4); Platelet Count 419 10x3/uL (130-400); RBC Distribution Width 16.5 % (11.5-14.5); Red Blood Cell (RBC) Count 3.98 mill/uL (4.20-5.40)
[2023-05-01] MEDS ORDERED: Magnesium 2 GM/50 ML BAG (IN WATER) ONE (11:02)
[2023-05-01 11:19] LABS: Delete Auto Diff?? YES; Manual Diff?? YES
[2023-05-01 11:24] LABS: Troponin I 0.024 ng/mL (< 0.028)
[2023-05-01 11:29] LABS: ALT (SGPT) 18 U/L (8-55); AST (SGOT) 29 U/L (5-34); Albumin 3.7 g/dL (3.4-4.8); Alkaline Phosphatase 141 U/L (40-110); Anion Gap 12 mmol/L (10-20); BUN (Urea Nitrogen) 9 mg/dL (9.8-20.1); Bilirubin, Total 0.2 mg/dL (0.2-1.2); Calc. Creatinine Clearance 0 mL/min (70-130); Carbon Dioxide 35 mmol/L (23-31); Chloride 97 mmol/L (98-107); Estimated GFR 61; Globulin 3.5 g/dL (2.4-3.5); Glucose 172 mg/dL (80-115); Potassium 3.4 mmol/L (3.5-5.1); Protein, Total 7.2 g/dL (5.8-8.1); Sodium 141 mmol/L (136-145)
[2023-05-01 11:39] LABS: Band 4 % (5-11); CellaVision Operator ID LAB.GE; Eosinophils 1 % (0-10); Lymphocytes 24 % (21-51); Macrocytosis SLIGHT = 6-15 cells HPF (0-5); Metamyelocyte 1 % (0-0); Monocytes 4 % (0-10); Neutrophil 64 % (42-75); Platelet Adequacy Comment Platelets Increased; Polychromasia SLIGHT = 2-3 cells HPF (0-2); Reactive Lymphocytes 2 % (0-10); Total Cell Count 100
[2023-05-01] MEDS ORDERED: Ipratropium/Albuterol 3 ML NEB ONE ×2 (11:44→13:00)
[2023-05-01] MEDS ORDERED: Albuterol 2.5 MG/0.5 ML NEB ONE ×2 (11:44→13:00)
[2023-05-01 13:57] LABS: Calcium, Ionized (venous) 1.12 mmol/L (1.16-1.32); Chloride (VBG) 98 mmol/L (98-106); Hematocrit-VBG 35 % (36.0-47.0); Hemoglobin (Hb) 11.9 g/dL (11.7-16.1); Sodium 144.4 mmol/L (133-146); pH (venous) 7.261 (7.32-7.43)
[2023-05-01 13:59] LABS: Actual Bicarbonate (HCO3v) 40.2 mEq/L (22-28)
[2023-05-01 14:06] LABS: Lactic Acid 1.6 mmol/L (0.5-2.2)
[2023-05-01] MEDS ORDERED: cefTRIAXone (ROCEPHIN) 2 GM VIAL ONE (15:08)
[2023-05-01] MEDS ORDERED: Ondansetron PF 4 MG/2 ML Vial IVP PRN (18:45)
[2023-05-01] MEDS ORDERED: Senokot S 8.6-50 MG TAB PO PRN (18:45)
[2023-05-01] MEDS ORDERED: cefTRIAXone Sodium 1 MG in Syringe 0 ML IVPB SCH (19:00)
[2023-05-01] MEDS ORDERED: oxyCODONE/Acetaminophen 5 mg/325 mg Tablet PO PRN (19:01)
[2023-05-01 19:21] VITALS: BMI 53.8
[2023-05-01] MEDS ORDERED: Dextrose 5% in Water 1,000 ML IV PRN (19:22)
[2023-05-01] MEDS ORDERED: HumaLOG 300 UNITS/3 ML VIAL SC PRN ×2 (19:22)
[2023-05-01] MEDS ORDERED: Dextrose 50% Abboject 50 ML SYRINGE SLOW IVP PRN (19:22)
[2023-05-01] MEDS ORDERED: Glucagon 1 MG/ML KIT IM PRN (19:22)
[2023-05-01] MEDS ORDERED: Ipratropium/Albuterol 3 ML NEB NEB PRN (19:22)
[2023-05-01 19:50] LABS: Hemoglobin A1c 5.1 % (4.0-6.0)
[2023-05-01] MEDS ORDERED: fentaNYL 75 mcg/hour Patch TD SCH (20:00)
[2023-05-01] MEDS ORDERED: cefTRIAXone\\ROCEPHIN 1 GM in Sodium Chloride 0.9% 100 ML IVPB SCH (20:00)
[2023-05-01 20:09] LABS: Digoxin 0.73 ng/mL (0.8-2.0)
[2023-05-01 20:12] LABS: Cardiac Risk 3.5 (Less than 4.5); Cholesterol 176 mg/dl (< 200 Desired); HDL Cholesterol 51 mg/dL (>60 Neg Risk); LDL Cholesterol, Calculated 114 mg/dL; Magnesium 2.5 mg/dL (1.6-2.6); Triglycerides 54 mg/dL (Less than 150)
[2023-05-01] MEDS: busPIRone HCl 5 MG TAB PO SCH (21:37)
[2023-05-01] MEDS: Lisinopril 10 MG TAB PO SCH (21:38)
[2023-05-01] MEDS: Atenolol 50 MG TAB PO SCH (21:38)
[2023-05-01] MEDS: Famotidine 20 MG TAB PO SCH (21:48)
[2023-05-01] MEDS: Ipratropium/Albuterol 3 ML NEB NEB SCH (21:56)
[2023-05-02] MEDS: methylPREDNISolone Sod Succ 40 MG VIAL IVP SCH ×5 (00:54→23:24)
[2023-05-02] MEDS: Ipratropium/Albuterol 3 ML NEB NEB SCH ×6 (01:51→21:56)
[2023-05-02] MEDS ORDERED: Lorazepam 2 MG/ML VIAL SLOW IVP SCH (02:15)
[2023-05-02 04:13] LABS: #Monocytes 0.3 thou/uL (0.11-0.59); %Basophils 0.1 % (0.0-1.0); %Lymphocytes 7.2 % (21.0-51.0); %Monocytes 1.8 % (0.0-10.0); %Neutrophils 90.4 % (42.0-75.0); Hematocrit 38.5 % (36.0-47.0); Mean Corpuscular HGB CONC 28.6 g/dL (32.0-36.0); Mean Corpuscular Hemoglobin 28.6 pg (27.0-31.0); Mean Platelet Volume 9.3 fL (7.4-10.4); Platelet Count 377 10x3/uL (130-400); RBC Distribution Width 16.4 % (11.5-14.5); Red Blood Cell (RBC) Count 3.85 mill/uL (4.20-5.40); White Blood Cell (WBC) Count 15.5 10x3/uL (4.8-10.8)
[2023-05-02 04:38] LABS: Anion Gap 14 mmol/L (10-20); BUN (Urea Nitrogen) 11 mg/dL (9.8-20.1); Calc. Creatinine Clearance 120 mL/min (70-130); Carbon Dioxide 36 mmol/L (23-31); Chloride 96 mmol/L (98-107); Estimated GFR 72; Glucose 105 mg/dL (80-115); Potassium 3.7 mmol/L (3.5-5.1); Sodium 142 mmol/L (136-145)
[2023-05-02] MEDS: Levothyroxine Sodium 100 MCG TAB PO SCH (06:07)
[2023-05-02] MEDS: Budesonide 0.5 MG/2 ML NEB NEB SCH ×2 (07:45→18:43)
[2023-05-02] MEDS: busPIRone HCl 5 MG TAB PO SCH ×2 (13:26→20:15)
[2023-05-02] MEDS: DULoxetine 60 MG CAP PO SCH (13:26)
[2023-05-02] MEDS: Digoxin 0.125 MG TAB PO SCH (13:26)
[2023-05-02] MEDS: Atenolol 50 MG TAB PO SCH ×2 (13:26→20:15)
[2023-05-02] MEDS: Famotidine 20 MG TAB PO SCH ×2 (13:26→20:14)
[2023-05-02] MEDS: AcetaZOLAMIDE 250 MG TAB PO SCH (13:36)
[2023-05-02] MEDS: cefTRIAXone\\ROCEPHIN 1 GM in Sodium Chloride 0.9% 100 ML IVPB SCH (15:19)
[2023-05-02] MEDS: traZODone HCl 50 MG TAB PO PRN (20:14)
[2023-05-02] MEDS: Lisinopril 10 MG TAB PO SCH (20:14)
[2023-05-02] MEDS ORDERED: Lorazepam 0.5 MG TAB PO SCH (23:30)
[2023-05-03] MEDS: Ipratropium/Albuterol 3 ML NEB NEB SCH ×6 (02:04→21:50)
[2023-05-03 03:54] LABS: #Monocytes 0.4 thou/uL (0.11-0.59); #Neutrophils 11.6 thou/uL (1.40-6.50); %Basophils 0.1 % (0.0-1.0); %Lymphocytes 9.1 % (21.0-51.0); %Monocytes 2.7 % (0.0-10.0); %Neutrophils 87.6 % (42.0-75.0); Hematocrit 35.9 % (36.0-47.0); Hemoglobin 10.5 g/dL (12.0-16.0); Mean Corpuscular HGB CONC 29.2 g/dL (32.0-36.0); Mean Corpuscular Hemoglobin 29.2 pg (27.0-31.0); Mean Platelet Volume 9.6 fL (7.4-10.4); Platelet Count 364 10x3/uL (130-400); RBC Distribution Width 16.5 % (11.5-14.5); Red Blood Cell (RBC) Count 3.59 mill/uL (4.20-5.40); White Blood Cell (WBC) Count 13.2 10x3/uL (4.8-10.8)
[2023-05-03 04:13] LABS: BUN (Urea Nitrogen) 10 mg/dL (9.8-20.1); Calc. Creatinine Clearance 123 mL/min (70-130); Calcium 8.5 mg/dL (7.8-10.44); Estimated GFR 74; Glucose 122 mg/dL (80-115)
[2023-05-03 04:24] LABS: Anion Gap 12 mmol/L (10-20); Carbon Dioxide 37 mmol/L (23-31); Chloride 94 mmol/L (98-107); Potassium 3.7 mmol/L (3.5-5.1); Sodium 139 mmol/L (136-145)
[2023-05-03] MEDS: Levothyroxine Sodium 100 MCG TAB PO SCH (06:26)
[2023-05-03] MEDS: methylPREDNISolone Sod Succ 40 MG VIAL IVP SCH ×3 (06:26→20:39)
[2023-05-03] MEDS: Budesonide 0.5 MG/2 ML NEB NEB SCH ×2 (07:39→18:39)
[2023-05-03] MEDS: AcetaZOLAMIDE 250 MG TAB PO SCH (08:09)
[2023-05-03] MEDS: Digoxin 0.125 MG TAB PO SCH (08:10)
[2023-05-03] MEDS: DULoxetine 60 MG CAP PO SCH (08:10)
[2023-05-03] MEDS: Atenolol 50 MG TAB PO SCH (08:10)
[2023-05-03] MEDS: busPIRone HCl 5 MG TAB PO SCH ×2 (08:10→20:29)
[2023-05-03] MEDS: Famotidine 20 MG TAB PO SCH ×2 (08:10→20:31)
[2023-05-03] MEDS: cefTRIAXone\\ROCEPHIN 1 GM in Sodium Chloride 0.9% 100 ML IVPB SCH (15:28)
[2023-05-03] MEDS: fentaNYL 75 mcg/hour Patch TD SCH (18:02)
[2023-05-03] MEDS: Atenolol 25 MG TAB PO SCH (20:30)
[2023-05-03] MEDS: Lisinopril 10 MG TAB PO SCH (20:31)
[2023-05-03] MEDS: traZODone HCl 50 MG TAB PO PRN (20:33)
[2023-05-04] MEDS: Ipratropium/Albuterol 3 ML NEB NEB SCH ×6 (02:01→22:39)
[2023-05-04 03:24] LABS: #Monocytes 0.6 thou/uL (0.11-0.59); #Neutrophils 10.6 thou/uL (1.40-6.50); %Basophils 0.1 % (0.0-1.0); %Lymphocytes 6.3 % (21.0-51.0); %Monocytes 4.7 % (0.0-10.0); %Neutrophils 88.2 % (42.0-75.0); Hematocrit 38.1 % (36.0-47.0); Mean Corpuscular HGB CONC 28.9 g/dL (32.0-36.0); Mean Corpuscular Volume 100.5 fl (78.0-98.0); Mean Platelet Volume 9.7 fL (7.4-10.4); Platelet Count 365 10x3/uL (130-400); RBC Distribution Width 16.4 % (11.5-14.5); Red Blood Cell (RBC) Count 3.79 mill/uL (4.20-5.40)
[2023-05-04 03:59] LABS: BUN (Urea Nitrogen) 11 mg/dL (9.8-20.1); Calc. Creatinine Clearance 121 mL/min (70-130); Calcium 8.6 mg/dL (7.8-10.44); Estimated GFR 72; Glucose 150 mg/dL (80-115)
[2023-05-04 04:08] LABS: Anion Gap 13 mmol/L (10-20); Carbon Dioxide 38 mmol/L (23-31); Chloride 95 mmol/L (98-107); Potassium 3.2 mmol/L (3.5-5.1); Sodium 143 mmol/L (136-145)
[2023-05-04] MEDS ORDERED: Potassium Chloride 20 MEQ TAB PO SCH (05:30)
[2023-05-04] MEDS: Levothyroxine Sodium 100 MCG TAB PO SCH (06:11)
[2023-05-04] MEDS: Budesonide 0.5 MG/2 ML NEB NEB SCH ×2 (06:42→18:39)
[2023-05-04] MEDS: Atenolol 25 MG TAB PO SCH ×2 (09:27→20:33)
[2023-05-04] MEDS: DULoxetine 60 MG CAP PO SCH (09:29)
[2023-05-04] MEDS: Famotidine 20 MG TAB PO SCH ×2 (09:29→20:33)
[2023-05-04] MEDS: Digoxin 0.125 MG TAB PO SCH (09:29)
[2023-05-04] MEDS: busPIRone HCl 5 MG TAB PO SCH ×2 (09:29→20:32)
[2023-05-04] MEDS: AcetaZOLAMIDE 250 MG TAB PO SCH (09:30)
[2023-05-04] MEDS: methylPREDNISolone Sod Succ 40 MG VIAL IVP SCH ×2 (09:30→20:33)
[2023-05-04] MEDS ORDERED: Cefdinir 300 MG CAP PO SCH (13:00)
[2023-05-04] MEDS: Potassium Chloride 20 MEQ TAB PO SCH (16:55)
[2023-05-04] MEDS: Lisinopril 10 MG TAB PO SCH (20:32)
[2023-05-04] MEDS: traZODone HCl 50 MG TAB PO PRN (20:32)
[2023-05-04] MEDS: Cefdinir 300 MG CAP PO SCH (20:33)
[2023-05-05] MEDS: Ipratropium/Albuterol 3 ML NEB NEB SCH ×6 (03:15→21:32)
[2023-05-05 04:09] LABS: Actual Bicarbonate (HCO3v) 37.2 mEq/L (22-28); Base Excess 8.4 mEq/L (-2.0 to +3.0); Calcium, Ionized (venous) 1.11 mmol/L (1.16-1.32); Chloride (VBG) 97 mmol/L (98-106); Hematocrit-VBG 35 % (36.0-47.0); Hemoglobin (Hb) 11.8 g/dL (11.7-16.1); Potassium (VBG) 3.48 mmol/L (3.70-5.30); Sodium 141.9 mmol/L (133-146); pH (venous) 7.306 (7.32-7.43)
[2023-05-05 04:14] LABS: #Monocytes 0.6 thou/uL (0.11-0.59); #Neutrophils 10.2 thou/uL (1.40-6.50); %Basophils 0.1 % (0.0-1.0); %Lymphocytes 7.7 % (21.0-51.0); %Monocytes 4.8 % (0.0-10.0); %Neutrophils 86.8 % (42.0-75.0); Hematocrit 37.3 % (36.0-47.0); Hemoglobin 10.7 g/dL (12.0-16.0); Mean Corpuscular HGB CONC 28.7 g/dL (32.0-36.0); Mean Corpuscular Hemoglobin 28.5 pg (27.0-31.0); Mean Corpuscular Volume 99.5 fl (78.0-98.0); Mean Platelet Volume 9.4 fL (7.4-10.4); Platelet Count 353 10x3/uL (130-400); RBC Distribution Width 16.3 % (11.5-14.5); Red Blood Cell (RBC) Count 3.75 mill/uL (4.20-5.40); White Blood Cell (WBC) Count 11.7 10x3/uL (4.8-10.8)
[2023-05-05 04:36] LABS: BUN (Urea Nitrogen) 10 mg/dL (9.8-20.1); Calc. Creatinine Clearance 123 mL/min (70-130); Calcium 8.5 mg/dL (7.8-10.44); Estimated GFR 73; Glucose 154 mg/dL (80-115)
[2023-05-05 04:45] LABS: Anion Gap 14 mmol/L (10-20); Carbon Dioxide 36 mmol/L (23-31); Chloride 96 mmol/L (98-107); Potassium 3.4 mmol/L (3.5-5.1); Sodium 143 mmol/L (136-145)
[2023-05-05] MEDS: Levothyroxine Sodium 100 MCG TAB PO SCH (05:24)
[2023-05-05] MEDS: Cefdinir 300 MG CAP PO SCH ×2 (08:42→20:11)
[2023-05-05] MEDS: Atenolol 25 MG TAB PO SCH ×2 (08:42→20:11)
[2023-05-05] MEDS: methylPREDNISolone Sod Succ 40 MG VIAL IVP SCH ×2 (08:42→20:11)
[2023-05-05] MEDS: Digoxin 0.125 MG TAB PO SCH (08:43)
[2023-05-05] MEDS: Famotidine 20 MG TAB PO SCH ×2 (08:43→20:11)
[2023-05-05] MEDS: busPIRone HCl 5 MG TAB PO SCH ×2 (08:43→20:11)
[2023-05-05] MEDS: AcetaZOLAMIDE 250 MG TAB PO SCH (08:43)
[2023-05-05] MEDS: DULoxetine 60 MG CAP PO SCH (08:43)
[2023-05-05] MEDS: Potassium Chloride 20 MEQ TAB PO SCH ×2 (08:43→17:18)
[2023-05-05] MEDS: Budesonide 0.5 MG/2 ML NEB NEB SCH ×2 (09:58→18:39)
[2023-05-05] MEDS: Lisinopril 10 MG TAB PO SCH (20:11)
[2023-05-06] MEDS: Ipratropium/Albuterol 3 ML NEB NEB SCH ×6 (01:52→21:35)
[2023-05-06] MEDS: Levothyroxine Sodium 100 MCG TAB PO SCH (05:14)
[2023-05-06] MEDS: Budesonide 0.5 MG/2 ML NEB NEB SCH ×2 (07:53→18:18)
[2023-05-06] MEDS: Potassium Chloride 20 MEQ TAB PO SCH ×2 (08:51→18:06)
[2023-05-06] MEDS: DULoxetine 60 MG CAP PO SCH (08:51)
[2023-05-06] MEDS: busPIRone HCl 5 MG TAB PO SCH ×2 (08:51→19:59)
[2023-05-06] MEDS: Cefdinir 300 MG CAP PO SCH ×2 (08:51→19:59)
[2023-05-06] MEDS: AcetaZOLAMIDE 250 MG TAB PO SCH (08:51)
[2023-05-06] MEDS: Famotidine 20 MG TAB PO SCH ×2 (08:52→19:59)
[2023-05-06] MEDS: Digoxin 0.125 MG TAB PO SCH (08:52)
[2023-05-06] MEDS: Atenolol 25 MG TAB PO SCH ×2 (08:53→19:59)
[2023-05-06] MEDS: methylPREDNISolone Sod Succ 40 MG VIAL IVP SCH ×2 (10:18→19:59)
[2023-05-06] MEDS: fentaNYL 75 mcg/hour Patch TD SCH (18:14)
[2023-05-06] MEDS: Lisinopril 10 MG TAB PO SCH (19:59)
[2023-05-06] MEDS: traZODone HCl 50 MG TAB PO PRN (20:34)
[2023-05-07] MEDS: Ipratropium/Albuterol 3 ML NEB NEB SCH ×4 (02:00→14:51)
[2023-05-07] MEDS: Levothyroxine Sodium 100 MCG TAB PO SCH (05:37)
[2023-05-07] MEDS: Budesonide 0.5 MG/2 ML NEB NEB SCH (06:00)
[2023-05-07] MEDS ORDERED: predniSONE 20 MG TAB PO SCH (08:00)
[2023-05-07] MEDS: AcetaZOLAMIDE 250 MG TAB PO SCH (09:19)
[2023-05-07] MEDS: Potassium Chloride 20 MEQ TAB PO SCH (09:19)
[2023-05-07] MEDS: Cefdinir 300 MG CAP PO SCH (09:19)
[2023-05-07] MEDS: Digoxin 0.125 MG TAB PO SCH (09:19)
[2023-05-07] MEDS: Famotidine 20 MG TAB PO SCH (09:19)
[2023-05-07] MEDS: DULoxetine 60 MG CAP PO SCH (09:19)
[2023-05-07] MEDS: busPIRone HCl 5 MG TAB PO SCH (09:19)
[2023-05-07] MEDS: Atenolol 25 MG TAB PO SCH (09:20)
[2023-05-07 12:07] VITALS: TEMP 96.8
[2023-05-07 13:15] VITALS: BP 152/94
== END 2023-05-07 16:51 | DRG 189 ==
LOC: ERS 10:17 → ERHOLD 15:25 → IMCU/EMU 19:11
PROVIDERS: ADMIT Specialist; ATTEND Specialist
PROC: 5A09457 Assistance with Respiratory Ventilation, 24-96 Consecutive Hours, Continuous Positive Airway Pressure (ICD-10-PCS; principal; 2023-05-01)
PROC: 5A0945A Assistance with Respiratory Ventilation, 24-96 Consecutive Hours, High Flow/Velocity Cannula (ICD-10-PCS; 2023-05-02)
DX: J96.21 Acute and chronic respiratory failure with hypoxia (principal); E66.2 Morbid (severe) obesity with alveolar hypoventilation; J44.1 Chronic obstructive pulmonary disease with (acute) exacerbation; J96.22 Acute and chronic respiratory failure with hypercapnia; I10 Essential (primary) hypertension; E78.5 Hyperlipidemia, unspecified; E03.9 Hypothyroidism, unspecified; D72.829 Elevated white blood cell count, unspecified; C88.0 Waldenstrom macroglobulinemia; R53.81 Other malaise; I48.0 Paroxysmal atrial fibrillation; M81.0 Age-related osteoporosis without current pathological fracture; K21.9 Gastro-esophageal reflux disease without esophagitis; F32.9 Major depressive disorder, single episode, unspecified; Z82.49 Family history of ischemic heart disease and other diseases of the circulatory system; Z99.81 Dependence on supplemental oxygen; Z87.891 Personal history of nicotine dependence; Z88.8 Allergy status to other drugs, medicaments and biological substances
CPT/HCPCS: 36415; 36416; 71045; 80048; 80053; 80061; 80162; 82805; 83036; 83605; 83735; 83880; 84443; 84484; 85025; 87040; 93005; 94640; 94760; 96365; 96367; J0696; J1650; J2060; J2405; J2920; J3475; J3490; J7512; J7611; J7620; J7626

== ENCOUNTER 2023-07-28 13:29 | Outpatient (CLI) | payer MEDICARE, BC, OTHER | END 2023-07-28 13:30 | disposition home or self-care (01) | LOC: RAD 13:29 | PROVIDERS: ATTEND Internal Medicine Critical Care Medicine | DX: R06.00 Dyspnea, unspecified (principal) | CPT/HCPCS: 71046 ==